=== PATIENT | female | born 1995 | race Two or more races ===

== ENCOUNTER 2020-01-21 11:05 | Emergency (ER) | payer MEDICAID ==
[~2020-01-21] VITALS: Ht 162.6 cm; Wt 61.7 kg
[2020-01-21 11:14] VITALS: BP 136/90
--- NOTE | 2020-01-21 11:34 | Emergency Room Report ---
History of Present Illness General Chief Complaint: Abdominal Pain Source: Patient Present Illness HPI Patient is a 24-year-old female who presents after increased abdominal discomfort. Reports having intermittent episodes of brief abdominal discomfort which lasts less than a minute. Patient would have these were at random times. Had some episodes of vomiting earlier in the week. Denies any diarrhea. Reports having normal bowel movements. Denies any hematemesis or bloody stools. Denies being . Had recent treatment for urinary patient had previous treatment for chlamydia but denies any other medical conditions. Allergies: Coded Allergies: No Known Allergies (Unverified , 01/21/20) COVID-19 Screening Contact w/high risk pt: No Experienced COVID-19 symptoms?: No COVID-19 Testing performed CLIENT TECH[employer]OLOGIES SPECIALIST: No Patient History Past Medical History: see triage record Last Menstrual Period: NA Now: No Reviewed Nursing Documentation: PMH: Agreed; PSxH: Agreed Nursing Documentation-PMH Past Medical History: No Stated History Hx Cardiac Problems: No Hx Hypertension: No Hx Pacemaker: No Hx Asthma: No Hx COPD: No Hx Diabetes: No Hx Cancer: No Hx Gastrointestinal Problems: No Hx Dialysis: No History Of Psychiatric Problem: No Hx Neurological Problems: No Hx Cerebrovascular Accident: No Hx Seizures: No Review of Systems All Other Systems: negative except mentioned in HPI Physical Exam Vital Signs Date Time Temp Pulse Resp B/P (MAP) Pulse Ox O2 Delivery O2 Flow Rate FiO2 01/21/20 11:10 98.1 73 16 136/90 (105) 99 Room Air General Appearance: well appearing, no apparent distress, alert, GCS 15 Head: normocephalic, atraumatic ENT: hearing grossly normal, normal voice Neck: full range of motion, supple Respiratory: no respiratory distress, speaking full sentences Cardiovascular #1: normal inspection Gastrointestinal: normal inspection, non tender, soft Musculoskeletal: no calf tenderness Neurologic: alert, motor strength/tone normal, r d internship III-XII nml as tested, oriented x3, normal gait Psychiatric: mood/affect normal Skin: no rash Medical Decision Making ER Course Patient presented for abdominal pain. Differential diagnosis include was not limited to gastritis, ulcer, dysmenorrhea, pelvic inflammatory disease, colitis among others. Patient has a benign exam and does not appear to require any imaging or laboratory testing at this time. Last Vital Signs Date Time Temp Pulse Resp B/P (MAP) Pulse Ox O2 Delivery O2 Flow Rate FiO2 01/21/20 11:14 98.1 73 16 136/90 99 Room Air Faisal English MD Jan 21, 2020 11:34
[2020-01-21] MEDS ORDERED: Lidocaine 2% Visc 15ml soln ORAL ONE (11:45)
[2020-01-21] MEDS ORDERED: Dicyclomine HCl 10mg/5ml oral soln ORAL ONE (11:45)
[2020-01-21 12:03] LABS: APPEARANCE,URINE CLEAR; BILIRUBIN, URINE NEGATIVE (NEGATIVE); COLOR,URINE PALE YELLOW; GLUCOSE, URINE (UA) NEGATIVE (NEGATIVE); KETONES,URINE NEGATIVE (NEGATIVE); LEUKOCYTE ESTERASE ,URINE NEGATIVE (NEGATIVE); NITRITE,URINE NEGATIVE (NEGATIVE); PH,URINE 8 (4.5-8.0); PROTEIN,URINE NEGATIVE (NEGATIVE); UROBILINOGEN,URINE NORMAL MG/DL (0.0-1.0)
[2020-01-21] MEDS ORDERED: DICYCLOMINE HCL10 MG ORAL (13:03)
[2020-01-21 13:28] VITALS: BP 131/82
== END 2020-01-21 13:29 | disposition home or self-care (01) ==
LOC: EMR 12:00
DX: R10.9 Unspecified abdominal pain (principal); R11.10 Vomiting, unspecified
CPT/HCPCS: 81003; 81025; Z7502; 99283